=== PATIENT | female | born 1945 | race Caucasian/White ===

== ENCOUNTER 2018-05-02 05:24 | Inpatient (IN) | payer MEDICARE, BC ==
[~2018-05-02 05:24] MED LIST: [UNRECOGNIZED DRUG - REMARK] XX
[2018-05-02] MEDS ORDERED: GELATIN SIZE 100 SPONGE (06:58)
[2018-05-02] MEDS ORDERED: MIDAZOLAM 1 MG/ML 2 ML INJ (07:09)
[2018-05-02] MEDS ORDERED: BUPIVACAINE 0.25% (MPF) 30 ML INJ (07:19)
[2018-05-02] MEDS: SURGIFOAM POWDER 1 GM KIT (08:02)
[2018-05-02] MEDS: BUPIVACAINE 0.5%/EPI (SDV) 30 ML INJ (08:03)
[2018-05-02] MEDS: POLYMYXIN/BACITRACIN 1L IRRIG (08:03)
[2018-05-02] MEDS: THROMBIN (BOVINE) 5,000 UNIT VIAL TP (08:03)
[2018-05-02] MEDS: CA CHLORIDE 10% 10 ML SYRINGE (08:04)
[2018-05-02] MEDS: HEPARIN 1000 UNITS/ML 10 ML INJ (08:04)
[2018-05-02] MEDS ORDERED: ROCURONIUM 50 MG INJ (09:22)
[2018-05-02] MEDS ORDERED: PROPOFOL 20 ML (09:22)
[2018-05-02] MEDS ORDERED: CEFAZOLIN 1 GM INJ (09:22)
[2018-05-02] MEDS ORDERED: ETOMIDATE 20 MG INJ (09:22)
[2018-05-02] MEDS ORDERED: ONDANSETRON 4 MG INJ (09:23)
[2018-05-02] MEDS ORDERED: HYDROmorphONE 1 MG/5 ML IV SYRINGE IV (09:54)
[2018-05-02] MEDS ORDERED: FENTAnyl 50 MCG/ML VIAL (09:54)
[2018-05-02] MEDS ORDERED: ONDANSETRON 4 MG INJ IV ×2 (10:00)
[2018-05-02] MEDS ORDERED: CEPASTAT LOZENGE MT ×2 (10:00→15:30)
[2018-05-02] MEDS ORDERED: BISACODYL 10 MG SUPP PR (10:00)
[2018-05-02] MEDS ORDERED: LABETALOL HCL 20MG INJ IV (10:00)
[2018-05-02] MEDS ORDERED: HYDROmorphONE 0.5 MG/0.5 ML SYG IV (10:00)
[2018-05-02] MEDS ORDERED: hydrALAzine 20 MG INJ IV (10:00)
[2018-05-02] MEDS ORDERED: ACETAMINOPHEN 325 MG TAB PO (10:00)
[2018-05-02] MEDS ORDERED: DIPHENHYDRAMINE 50 MG INJ IV ×2 (10:00)
[2018-05-02] MEDS ORDERED: METOCLOPRAMIDE 10 MG INJ IV (10:00)
[2018-05-02] MEDS ORDERED: NALOXONE (0.4 MG/ML) INJ IV (10:00)
[2018-05-02] MEDS: HYDROmorphONE 0.2 MG/ML PCA IV ×2 (10:12→23:56)
[2018-05-02] MEDS: FENTAnyl 50 MCG/ML VIAL IV ×2 (10:16→10:27)
[2018-05-02] MEDS: LACTATED RINGER'S 1L BAG IV* (11:09)
[2018-05-02] MEDS: D5W-0.45 NACL + KCL 20 MEQ 1,000 ML IV ×2 (11:43→20:11)
[2018-05-02] MEDS: CEFAZOLIN 1 GM/50 ML (PMX) 50 ML IVPB ×2 (13:18→22:25)
[2018-05-02] MEDS: ALBUTEROL HFA 8 GM INHALER INH ×2 (17:17→20:09)
[2018-05-02] MEDS: DOCUSATE SODIUM 100 MG CAP PO (20:10)
[2018-05-02] MEDS: AL HYDROX/MG HYDROX/SIMETH 30 ML CUP PO (23:51)
[2018-05-03] MEDS: ACETAMINOPHEN 325 MG TAB PO (04:06)
[2018-05-03 05:11] LABS: ADD MAN DIFF? NO
[2018-05-03 05:19] LABS: BASOPHILS % 0.1 % (0.0-2.0); EOSINOPHILS % 0.5 % (0.0-7.0); HEMATOCRIT 34.1 % (37.0-47.0); HEMOGLOBIN 11.1 g/dl (12.0-16.0); LYMPHOCYTES # 1.4 10^3/ul (0.8-2.9); LYMPHOCYTES % 17.4 % (15.0-51.0); MEAN CORPUSCULAR HEMOGLOBIN 32.4 pg (29.0-33.0); MEAN CORPUSCULAR HGB CONC 32.6 g/dl (32.0-37.0); MEAN CORPUSCULAR VOLUME 99.4 fl (82.0-101.0); MEAN PLATELET VOLUME 9.5 fl (7.4-10.4); MONOCYTE # 0.7 10^3/ul (0.3-0.9); MONOCYTES % 8.6 % (0.0-11.0); NEUTROPHIL # 5.7 10^3/ul (1.6-7.5); PLATELET COUNT 112 10^3/UL (140-415); RED BLOOD COUNT 3.43 10^6/ul (4.20-5.40)
[2018-05-03 05:19] LABS: WHITE BLOOD COUNT 7.8 10^3/ul (4.8-10.8)
[2018-05-03] MEDS: CEFAZOLIN 1 GM/50 ML (PMX) 50 ML IVPB (05:30)
[2018-05-03 05:39] LABS: ANION GAP 4 (5-13); BLOOD UREA NITROGEN 8 mg/dl (7-20); CALCIUM 8.6 mg/dl (8.4-10.2); CARBON DIOXIDE 29 mmol/L (21-31); CHLORIDE 105 mmol/L (97-110); CREATININE 0.62 mg/dl (0.44-1.00); GLUCOSE 100 mg/dl (70-220); MAGNESIUM 1.8 mg/dl (1.7-2.5); POTASSIUM 4.3 mmol/L (3.5-5.1); SODIUM 138 mmol/L (135-144)
[2018-05-03] MEDS: D5W-0.45 NACL + KCL 20 MEQ 1,000 ML IV (09:00)
[2018-05-03] MEDS: DOCUSATE SODIUM 100 MG CAP PO ×2 (09:28→20:43)
[2018-05-03] MEDS: HYDROCODONE/APAP (10/325) TAB PO ×3 (09:29→19:45)
[2018-05-03 12:03] LABS: ADD UMIC NO; UR ASCORBIC ACID NEGATIVE (NEGATIVE); UR BILIRUBIN (Dip) NEGATIVE (NEGATIVE); UR BLOOD (Dip) NEGATIVE (NEGATIVE); UR CLARITY CLEAR (CLEAR); UR COLOR YELLOW (YELLOW); UR GLUCOSE (Dip) NEGATIVE (NEGATIVE); UR KETONES (Dip) NEGATIVE (NEGATIVE); UR LEUKOCYTE ESTERASE (Dip) NEGATIVE Leu/ul (NEGATIVE); UR NITRITE (Dip) NEGATIVE (NEGATIVE); UR SPECIFIC GRAVITY (Dip) 1.006 (1.003-1.030); UR TOTAL PROTEIN (Dip) NEGATIVE (NEGATIVE); UR UROBILINOGEN (Dip) NEGATIVE (NEGATIVE)
[2018-05-04] MEDS: HYDROCODONE/APAP (10/325) TAB PO ×3 (01:32→14:15)
[2018-05-04 06:21] LABS: ADD MAN DIFF? NO
[2018-05-04 06:26] LABS: BASOPHILS % 0.3 % (0.0-2.0); EOSINOPHILS # 0.1 10^3/ul (0.0-0.5); EOSINOPHILS % 1.1 % (0.0-7.0); HEMATOCRIT 31.7 % (37.0-47.0); HEMOGLOBIN 10.4 g/dl (12.0-16.0); LYMPHOCYTES % 14.1 % (15.0-51.0); MEAN CORPUSCULAR HEMOGLOBIN 32.2 pg (29.0-33.0); MEAN CORPUSCULAR HGB CONC 32.8 g/dl (32.0-37.0); MEAN CORPUSCULAR VOLUME 98.1 fl (82.0-101.0); MEAN PLATELET VOLUME 10.3 fl (7.4-10.4); MONOCYTE # 0.6 10^3/ul (0.3-0.9); MONOCYTES % 7.6 % (0.0-11.0); NEUTROPHIL # 5.6 10^3/ul (1.6-7.5); NEUTROPHILS % 76.5 % (39.0-77.0); PLATELET COUNT 102 10^3/UL (140-415); RED BLOOD COUNT 3.23 10^6/ul (4.20-5.40); RED CELL DISTRIBUTION WIDTH 11.9 % (11.5-14.5)
[2018-05-04 06:26] LABS: WHITE BLOOD COUNT 7.4 10^3/ul (4.8-10.8)
[2018-05-04 06:46] LABS: ANION GAP 6 (5-13); BLOOD UREA NITROGEN 8 mg/dl (7-20); CALCIUM 8.8 mg/dl (8.4-10.2); CARBON DIOXIDE 28 mmol/L (21-31); CHLORIDE 102 mmol/L (97-110); CREATININE 0.66 mg/dl (0.44-1.00); GLUCOSE 97 mg/dl (70-220); MAGNESIUM 1.9 mg/dl (1.7-2.5); PHOSPHORUS 2.7 mg/dl (2.5-4.9); SODIUM 136 mmol/L (135-144)
[2018-05-04] MEDS: DOCUSATE SODIUM 100 MG CAP PO (08:33)
[2018-05-04] MEDS: CYCLOBENZAPRINE 10 MG TAB PO (11:09)
== END 2018-05-04 14:38 | disposition home or self-care (01) | DRG 520 ==
LOC: REC 05:24 → MS1 10:55
PROVIDERS: Specialist
PROC: 00BY0ZZ Excision of Lumbar Spinal Cord, Open Approach (ICD-10-PCS; principal; 2018-05-02 07:00)
PROC: 01NB0ZZ Release Lumbar Nerve, Open Approach (ICD-10-PCS; 2018-05-02 07:00)
DX: M71.38 Other bursal cyst, other site (principal); M48.061 Spinal stenosis, lumbar region without neurogenic claudication; M54.16 Radiculopathy, lumbar region; I10 Essential (primary) hypertension; J45.909 Unspecified asthma, uncomplicated; E03.9 Hypothyroidism, unspecified; G47.33 Obstructive sleep apnea (adult) (pediatric); E78.5 Hyperlipidemia, unspecified; E66.01 Morbid (severe) obesity due to excess calories; Z88.0 Allergy status to penicillin; Z68.37 Body mass index [BMI] 37.0-37.9, adult
CPT/HCPCS: 71045; 72100; 80048; 81003; 83735; 84100; 85025; 86999; 87086; 88304; 97110; 97116; 97162; 97530